=== PATIENT | male | born 1935 | race American Indian/Alaskan Native ===

== ENCOUNTER → 2022-03-15 | Outpatient (CLI) | payer MEDICARE, OTHER ==
[~2022-03-15] MED LIST: Pyridium100 MG PO; TAMS.4ER PO
[2022-03-15 10:57] LABS: Source, Urine Clean Catch
[2022-03-15 13:49] LABS: Appearance, Urine Hazy (Clear); Bilirubin, Urine Neg (Neg); Blood, Urine 1+ (Neg); Color, Urine Yellow (P-Yellow); Glucose Qualitative, Urine Neg (Neg); Ketones, Urine Neg (Neg); Leukocyte Esterase, Urine 2+ (Neg); Nitrite, Urine Neg (Neg); Protein, Urine 1+ (Neg); Urobilinogen, Urine NORM (Normal)
[2022-03-15 14:28] LABS: Bacteria Many /hpf; Red Blood Cells, Urine 0-2 /hpf (0-2); Squamous Epithelial Cells Few /hpf (Few); White Blood Cells, Urine TNTC /hpf (0-5)
== END | disposition home or self-care (01) ==
LOC: LAB 10:26 → LAB SHORT 10:26 → LAB FUT 03-14 18:15
PROVIDERS: Urology
DX: N39.0 Urinary tract infection, site not specified (principal)
CPT/HCPCS: 81001; 87077; 87086; 87186

== ENCOUNTER 2022-03-20 10:00 | Emergency (ER) | payer MEDICARE, OTHER ==
[~2022-03-20] VITALS: Ht 172.7 cm; Wt 71.2 kg
[2022-03-20 10:54] LABS: Source, Urine Voided
[2022-03-20 11:04] LABS: Appearance, Urine Clear (Clear); Bilirubin, Urine Neg (Neg); Blood, Urine Neg (Neg); Color, Urine Yellow (P-Yellow); Glucose Qualitative, Urine Neg (Neg); Ketones, Urine Neg (Neg); Leukocyte Esterase, Urine 1+ (Neg); Nitrite, Urine Neg (Neg); Protein, Urine 1+ (Neg); Specific Gravity, Urine 1.025 (1.003-1.022); Urobilinogen, Urine NORM (Normal)
[2022-03-20 13:01] LABS: Calcium Oxalate Crystals Few /hpf; Red Blood Cells, Urine 0-2 /hpf (0-2)
[2022-03-20 13:03] LABS: Bacteria Mod /hpf; Squamous Epithelial Cells Rare /hpf (Few)
[2022-03-20 13:04] LABS: Mucus Light (0-Heavy)
[2022-03-20] MEDS ORDERED: TAMS.4ER PO (13:08)
[2022-03-20] MEDS ORDERED: Pyridium100 MG PO (13:08)
== END 2022-03-20 13:21 | disposition home or self-care (01) ==
LOC: ER 10:00
PROVIDERS: Emergency Medicine
DX: S93.402A Sprain of unspecified ligament of left ankle, initial encounter (principal); N39.0 Urinary tract infection, site not specified; K52.1 Toxic gastroenteritis and colitis; W19.XXXA Unspecified fall, initial encounter; Z79.899 Other long term (current) drug therapy
CPT/HCPCS: 73562-LT; 73610; 81001; 87086; A9270

== ENCOUNTER 2022-03-25 09:38 | Emergency (ER) | payer MEDICARE, OTHER ==
[~2022-03-25] VITALS: Ht 172.7 cm; Wt 72.6 kg
[2022-03-25] MEDS ORDERED: TAMS.4ER PO (10:05)
== END 2022-03-25 10:41 | disposition home or self-care (01) ==
LOC: ER 09:38
DX: R33.9 Retention of urine, unspecified (principal); Z85.46 Personal history of malignant neoplasm of prostate; Z79.899 Other long term (current) drug therapy
CPT/HCPCS: 51702; 51798; A9270

== ENCOUNTER → 2022-03-29 | Outpatient (CLI) | payer MEDICARE, OTHER ==
[2022-03-29 13:56] LABS: BASOPHILS ABSOLUTE AUTO 0.04 K/mm3 (0.00-0.23); BASOPHILS PERCENT AUTO 1 % (0-2); EOSINOPHILS ABSOLUTE AUTO 0.48 K/mm3 (0.00-0.68); EOSINOPHILS PERCENT AUTO 8 % (0-6); Hematocrit 37.5 % (37.0-53.0); Hemoglobin 12.5 g/dL (13.5-17.5); IMMATURE GRAN ABSOLUTE AUTO 0.02 K/mm3 (0.00-0.10); IMMATURE GRAN PERCENT AUTO 0 % (0-1); LYMPHOCYTES ABSOLUTE AUTO 0.72 K/mm3 (0.84-5.20); LYMPHOCYTES PERCENT AUTO 12 % (21-46); MONOCYTES ABSOLUTE AUTO 0.64 K/mm3 (0.16-1.47); MONOCYTES PERCENT AUTO 10 % (4-13); Mean Corpuscular HGB 31.2 pg (26.0-34.0); Mean Corpuscular HGB Conc 33.3 g/dL (31.5-36.5); Mean Corpuscular Volume 94 fL (80-100); Mean Platelet Volume 10.6 fL (9.1-12.4); NEUTROPHILS ABSOLUTE AUTO 4.25 K/mm3 (1.96-9.15); NEUTROPHILS PERCENT AUTO 69 % (41-73); Platelet Count 211 K/mm3 (150-400); RDW Coefficient Variation 12.9 % (11.7-14.2); RDW Standard Deviation 44.6 fL (35.1-46.3); Red Blood Cell Count 4.01 M/mm3 (4.30-5.90); White Blood Cell Count 6.15 K/mm3 (4.00-11.30)
[2022-03-29 18:42] LABS: Albumin, Blood 2.9 g/dL (3.4-5.0); Albumin/Globulin Ratio 0.8 (0.8-1.8); Bilirubin, Total 0.5 mg/dL (0.1-1.0); Bun/Creatinine Ratio 18.9 (12.0-20.0); Calcium, Blood 8.4 mg/dL (8.5-10.1); Creatinine, Blood 1.11 mg/dL (0.60-1.20); Globulin, Blood 3.7 g/dL (2.2-4.0); Potassium, Blood 4.1 mmol/L (3.5-5.5); Total Protein, Blood 6.6 g/dL (6.4-8.2)
== END | disposition home or self-care (01) ==
LOC: LAB SHORT 09:18 → LAB 09:18
PROVIDERS: Internal Medicine Rheumatology
DX: M06.9 Rheumatoid arthritis, unspecified (principal)
CPT/HCPCS: 80053; 85025; 85651

== ENCOUNTER 2022-04-19 09:00 | Day surgery (SDC) | payer MEDICARE, OTHER ==
[~2022-04-19] VITALS: Ht 172.7 cm; Wt 71.7 kg
[~2022-04-19 09:00] MED LIST changes: +CEFD300 PO
[2022-04-19] MEDS ORDERED: ALBU2.5V5 (09:17)
[2022-04-19] MEDS ORDERED: ALLEGRA ALLERG180 MG PO (09:18)
[2022-04-19] MEDS ORDERED: DOC250 PO (09:18)
[2022-04-19] MEDS ORDERED: GLUCHON PO (09:18)
[2022-04-19] MEDS ORDERED: HYDSUL200 PO (09:19)
[2022-04-19] MEDS ORDERED: MULVITA PO (09:19)
[2022-04-19] MEDS ORDERED: Lisinopril2.5 MG (09:19)
[2022-04-19] MEDS ORDERED: LORA1SY (09:19)
[2022-04-19] MEDS ORDERED: NAPR500 PO (09:20)
[2022-04-19] MEDS ORDERED: PRED1 PO (09:20)
[2022-04-19] MEDS ORDERED: PSYLLIUM FIBER0.4 GM PO (09:21)
--- NOTE | 2022-04-19 11:50 | NUR ---
Discharge instructions reviewed with patient. Patient verbalizes understanding. Copy given to patient to take home.
--- NOTE | 2022-04-19 11:57 | NUR ---
Dressing to procedure site clean, dry, intact with no visible drainage, swelling, erythema or bruising noted.
--- NOTE | 2022-04-19 11:58 | NUR ---
Discharged via wheelchair to private car for ride home.
== END 2022-04-19 11:59 | disposition home or self-care (01) ==
LOC: ORSCMMR 09:00
PROVIDERS: Surgery
PROC: 0YB Anatomical Regions, Lower Extremities, Excision (ICD-10-PCS; principal; 2022-04-19 09:30)
DX: R22.9 Localized swelling, mass and lump, unspecified (principal); Z85.46 Personal history of malignant neoplasm of prostate; J44.9 Chronic obstructive pulmonary disease, unspecified; Z87.891 Personal history of nicotine dependence; Z79.899 Other long term (current) drug therapy
CPT/HCPCS: 88305; J1100; J1720; J2370; J2405; J2704; J2795; J3010; J7120

== ENCOUNTER 2022-04-30 15:01 | Emergency (ER) | payer MEDICARE, OTHER ==
[~2022-04-30] VITALS: Ht 172.7 cm; Wt 68.0 kg
[~2022-04-30 15:01] MED LIST changes: +ALBU2.5V5; +ALLEGRA ALLERG180 MG PO; +DOC250 PO; +GLUCHON PO; +HYDSUL200 PO; +LORA1SY; +Lisinopril2.5 MG; +MULVITA PO; +NAPR500 PO; +PRED1 PO; +PSYLLIUM FIBER0.4 GM PO
[2022-04-30 15:43] LABS: Source, Urine Foley catheter
[2022-04-30 15:46] LABS: Appearance, Urine Clear (Clear); Bilirubin, Urine Neg (Neg); Blood, Urine Neg (Neg); Color, Urine Yellow (P-Yellow); Glucose Qualitative, Urine Neg (Neg); Ketones, Urine Neg (Neg); Leukocyte Esterase, Urine 1+ (Neg); Nitrite, Urine Neg (Neg); Protein, Urine Neg (Neg); Specific Gravity, Urine 1.015 (1.003-1.022); Urobilinogen, Urine NORM (Normal)
[2022-04-30 16:06] LABS: Bacteria Mod /hpf; Red Blood Cells, Urine 0-2 /hpf (0-2); Squamous Epithelial Cells Rare /hpf (Few)
== END 2022-04-30 16:15 | disposition home or self-care (01) ==
LOC: ER 15:01
PROVIDERS: Student in an Organized Health Care Education/Training Program
DX: Z46.6 Encounter for fitting and adjustment of urinary device (principal); Z79.899 Other long term (current) drug therapy; Z79.52 Long term (current) use of systemic steroids
CPT/HCPCS: 51702; 81001

== ENCOUNTER 2022-06-23 15:50 | Emergency (ER) | payer MEDICARE, OTHER ==
[~2022-06-23] VITALS: Ht 172.7 cm; Wt 65.8 kg
[2022-06-23 16:13] LABS: BASOPHILS ABSOLUTE AUTO 0.02 K/mm3 (0.00-0.23); BASOPHILS PERCENT AUTO 0 % (0-2); EOSINOPHILS ABSOLUTE AUTO 0.06 K/mm3 (0.00-0.68); EOSINOPHILS PERCENT AUTO 1 % (0-6); Hematocrit 37.9 % (37.0-53.0); Hemoglobin 12.4 g/dL (13.5-17.5); IMMATURE GRAN ABSOLUTE AUTO 0.02 K/mm3 (0.00-0.10); IMMATURE GRAN PERCENT AUTO 0 % (0-1); LYMPHOCYTES ABSOLUTE AUTO 0.32 K/mm3 (0.84-5.20); LYMPHOCYTES PERCENT AUTO 4 % (21-46); MONOCYTES ABSOLUTE AUTO 0.82 K/mm3 (0.16-1.47); MONOCYTES PERCENT AUTO 11 % (4-13); Mean Corpuscular HGB 30.3 pg (26.0-34.0); Mean Corpuscular HGB Conc 32.7 g/dL (31.5-36.5); Mean Corpuscular Volume 93 fL (80-100); Mean Platelet Volume 9.9 fL (9.1-12.4); NEUTROPHILS ABSOLUTE AUTO 6.24 K/mm3 (1.96-9.15); NEUTROPHILS PERCENT AUTO 83 % (41-73); Platelet Count 197 K/mm3 (150-400); RDW Coefficient Variation 12.7 % (11.7-14.2); RDW Standard Deviation 43.3 fL (35.1-46.3); Red Blood Cell Count 4.09 M/mm3 (4.30-5.90); White Blood Cell Count 7.48 K/mm3 (4.00-11.30)
[2022-06-23] MEDS ORDERED: MYCO250 PO (16:25)
[2022-06-23] MEDS ORDERED: FURO20 (16:25)
[2022-06-23 16:51] LABS: Influenza A, PCR NEGATIVE (NEGATIVE); Influenza B, PCR NEGATIVE (NEGATIVE); Resp Syncytial Virus, PCR NEGATIVE (NEGATIVE)
[2022-06-23 16:53] LABS: Albumin, Blood 2.8 g/dL (3.4-5.0); Albumin/Globulin Ratio 0.7 (0.8-1.8); Bilirubin, Total 0.4 mg/dL (0.1-1.0); Bun/Creatinine Ratio 12.2 (12.0-20.0); Calcium, Blood 8.7 mg/dL (8.5-10.1); Creatinine, Blood 1.31 mg/dL (0.60-1.20); Globulin, Blood 3.9 g/dL (2.2-4.0); Potassium, Blood 4.8 mmol/L (3.5-5.5); Total Protein, Blood 6.7 g/dL (6.4-8.2)
[2022-06-23 17:00] LABS: SARS-Cov-2 (COVID-19) PCR, MMC POSITIVE (NEGATIVE)
== END 2022-06-23 19:22 | disposition home or self-care (01) ==
LOC: ER 15:50
PROVIDERS: Emergency Medicine
DX: U07.1 COVID-19 (principal); Z91.09 Other allergy status, other than to drugs and biological substances; Z79.899 Other long term (current) drug therapy; Z79.52 Long term (current) use of systemic steroids
CPT/HCPCS: 0241U; 71045; 80053; 85025; 93005; 93010; 99285-25; A9270

== ENCOUNTER 2022-09-28 08:47 | Emergency (ER) | payer MEDICARE, OTHER ==
[~2022-09-28] VITALS: Ht 177.8 cm; Wt 61.7 kg
[~2022-09-28 08:47] MED LIST changes: +FURO20; +MYCO250 PO
[2022-09-28 11:15] VITALS: BP 126/74
[2022-09-28 11:23] LABS: Source, Urine Foley catheter
[2022-09-28] MEDS ORDERED: SULFAMETHOXAZO1 EAC1 PO (11:27)
[2022-09-28 11:56] LABS: Appearance, Urine Hazy (Clear); Bilirubin, Urine Neg (Neg); Blood, Urine 2+ (Neg); Color, Urine Yellow (P-Yellow); Glucose Qualitative, Urine Neg (Neg); Ketones, Urine Neg (Neg); Leukocyte Esterase, Urine 2+ (Neg); Nitrite, Urine Neg (Neg); Protein, Urine 2+ (Neg); Specific Gravity, Urine 1.015 (1.003-1.022); Urobilinogen, Urine NORM (Normal)
[2022-09-28 12:09] LABS: Bacteria Few /hpf; Squamous Epithelial Cells Rare /hpf (Few)
[2022-09-28] MEDS ORDERED: Percocet 5-3251 EACH PO (13:37)
== END 2022-09-28 13:47 | disposition home or self-care (01) ==
LOC: ER 08:47
PROVIDERS: Emergency Medicine
DX: T83.091A Other mechanical complication of indwelling urethral catheter, initial encounter (principal); N39.0 Urinary tract infection, site not specified; Z85.46 Personal history of malignant neoplasm of prostate; Z91.048 Other nonmedicinal substance allergy status; Z79.52 Long term (current) use of systemic steroids; X58.XXXA Exposure to other specified factors, initial encounter
CPT/HCPCS: 51702; 81001; 87086; 99283-25; A9270

== ENCOUNTER 2022-12-04 18:12 | Emergency (ER) | payer MEDICARE, OTHER ==
[~2022-12-04] VITALS: Ht 172.7 cm; Wt 63.0 kg
[~2022-12-04 18:12] MED LIST changes: +Percocet 5-3251 EACH PO; +SULFAMETHOXAZO1 EAC1 PO
[2022-12-04 18:29] VITALS: BP 141/81
== END 2022-12-04 19:47 | disposition home or self-care (01) ==
LOC: ER 18:12
DX: T83.018A Breakdown (mechanical) of other urinary catheter, initial encounter (principal); Y84.6 Urinary catheterization as the cause of abnormal reaction of the patient, or of later complication, without mention of misadventure at the time of the procedure
CPT/HCPCS: 51702; 99282-25

== ENCOUNTER 2022-12-23 15:01 | Emergency (ER) | payer MEDICARE, OTHER ==
[~2022-12-23] VITALS: Ht 172.7 cm; Wt 62.1 kg
[2022-12-23 15:30] LABS: Source, Urine Foley catheter
[2022-12-23 15:31] LABS: BASOPHILS ABSOLUTE AUTO 0.03 K/mm3 (0.00-0.23); BASOPHILS PERCENT AUTO 0 % (0-2); EOSINOPHILS ABSOLUTE AUTO 0.07 K/mm3 (0.00-0.68); EOSINOPHILS PERCENT AUTO 1 % (0-6); Hematocrit 35.6 % (37.0-53.0); Hemoglobin 11.6 g/dL (13.5-17.5); IMMATURE GRAN ABSOLUTE AUTO 0.01 K/mm3 (0.00-0.10); IMMATURE GRAN PERCENT AUTO 0 % (0-1); LYMPHOCYTES ABSOLUTE AUTO 0.58 K/mm3 (0.84-5.20); LYMPHOCYTES PERCENT AUTO 8 % (21-46); MONOCYTES ABSOLUTE AUTO 0.55 K/mm3 (0.16-1.47); MONOCYTES PERCENT AUTO 8 % (4-13); Mean Corpuscular HGB 31.1 pg (26.0-34.0); Mean Corpuscular HGB Conc 32.6 g/dL (31.5-36.5); Mean Corpuscular Volume 95 fL (80-100); Mean Platelet Volume 10.3 fL (9.1-12.4); NEUTROPHILS ABSOLUTE AUTO 6.06 K/mm3 (1.96-9.15); NEUTROPHILS PERCENT AUTO 83 % (41-73); Platelet Count 199 K/mm3 (150-400); RDW Coefficient Variation 13.1 % (11.7-14.2); RDW Standard Deviation 45.8 fL (35.1-46.3); Red Blood Cell Count 3.73 M/mm3 (4.30-5.90)
[2022-12-23 15:38] LABS: Albumin, Blood 3.1 g/dL (3.4-5.0); Albumin/Globulin Ratio 0.8 (0.8-1.8); Bilirubin, Total 0.2 mg/dL (0.1-1.0); Bun/Creatinine Ratio 15.8 (12.0-20.0); Calcium, Blood 8.3 mg/dL (8.5-10.1); Creatinine, Blood 1.46 mg/dL (0.60-1.20); Globulin, Blood 3.7 g/dL (2.2-4.0); Potassium, Blood 4.6 mmol/L (3.5-5.5); Total Protein, Blood 6.8 g/dL (6.4-8.2)
[2022-12-23 15:50] LABS: Appearance, Urine Hazy (Clear); Bilirubin, Urine Neg (Neg); Blood, Urine 2+ (Neg); Color, Urine Yellow (P-Yellow); Glucose Qualitative, Urine Neg (Neg); Ketones, Urine Neg (Neg); Leukocyte Esterase, Urine 2+ (Neg); Nitrite, Urine Pos (Neg); Protein, Urine 1+ (Neg); Urobilinogen, Urine NORM (Normal)
[2022-12-23 16:57] LABS: Amorphous Light (0-Heavy); Bacteria Many /hpf; Mucus Light (0-Heavy); Squamous Epithelial Cells Few /hpf (Few); Transitional Epithelial Cells Rare /hpf (0-Rare)
[2022-12-23 18:30] VITALS: BP 150/73
== END 2022-12-23 18:42 | disposition home or self-care (01) ==
LOC: ER 15:01
PROVIDERS: Student in an Organized Health Care Education/Training Program
DX: T83.518A Infection and inflammatory reaction due to other urinary catheter, initial encounter (principal); R31.9 Hematuria, unspecified; X58.XXXA Exposure to other specified factors, initial encounter; Z79.51 Long term (current) use of inhaled steroids; Z79.899 Other long term (current) drug therapy; Z79.890 Hormone replacement therapy; Z91.09 Other allergy status, other than to drugs and biological substances
CPT/HCPCS: 80053; 81001; 85025; 87077; 87086; 87186; 99284

== ENCOUNTER 2023-02-03 12:26 | Emergency (ER) | payer MEDICARE, OTHER ==
[~2023-02-03] VITALS: Ht 172.7 cm; Wt 61.2 kg
[2023-02-03 12:32] VITALS: BP 121/70
[2023-02-03 13:26] LABS: Source, Urine Foley catheter
[2023-02-03 13:34] LABS: Appearance, Urine Cloudy (Clear); Bilirubin, Urine Neg (Neg); Blood, Urine 4+ (Neg); Color, Urine Yellow (P-Yellow); Glucose Qualitative, Urine Neg (Neg); Ketones, Urine Neg (Neg); Leukocyte Esterase, Urine 2+ (Neg); Nitrite, Urine Neg (Neg); Protein, Urine 2+ (Neg); Specific Gravity, Urine 1.025 (1.003-1.022); Urobilinogen, Urine NORM (Normal)
[2023-02-03 14:01] LABS: Amorphous Light (0-Heavy); Bacteria Many /hpf; Hyaline Casts 0-2 /lpf (0-2); Mucus Light (0-Heavy); Red Blood Cells, Urine 25-50 /hpf (0-2); Renal Epithelial Few /hpf (0-Rare); Squamous Epithelial Cells Rare /hpf (Few); White Blood Cells, Urine 25-50 /hpf (0-5)
== END 2023-02-03 14:39 | disposition home or self-care (01) ==
LOC: ER 12:26
PROVIDERS: Student in an Organized Health Care Education/Training Program
DX: T83.031A Leakage of indwelling urethral catheter, initial encounter (principal); Y84.6 Urinary catheterization as the cause of abnormal reaction of the patient, or of later complication, without mention of misadventure at the time of the procedure; Z91.048 Other nonmedicinal substance allergy status; Z79.899 Other long term (current) drug therapy
CPT/HCPCS: 51702; 81001; 87086; 99283-25

== ENCOUNTER 2023-02-24 13:43 | Emergency (ER) | payer MEDICARE, OTHER ==
[~2023-02-24] VITALS: Ht 172.7 cm; Wt 62.6 kg
[2023-02-24 15:32] LABS: BASOPHILS ABSOLUTE AUTO 0.03 K/mm3 (0.00-0.23); BASOPHILS PERCENT AUTO 0 % (0-2); EOSINOPHILS ABSOLUTE AUTO 0.04 K/mm3 (0.00-0.68); EOSINOPHILS PERCENT AUTO 0 % (0-6); Hemoglobin 11.9 g/dL (13.5-17.5); IMMATURE GRAN ABSOLUTE AUTO 0.03 K/mm3 (0.00-0.10); IMMATURE GRAN PERCENT AUTO 0 % (0-1); LYMPHOCYTES ABSOLUTE AUTO 0.05 K/mm3 (0.84-5.20); LYMPHOCYTES PERCENT AUTO 0 % (21-46); MONOCYTES ABSOLUTE AUTO 0.62 K/mm3 (0.16-1.47); MONOCYTES PERCENT AUTO 5 % (4-13); Mean Corpuscular HGB 31.5 pg (26.0-34.0); Mean Corpuscular HGB Conc 32.2 g/dL (31.5-36.5); Mean Corpuscular Volume 98 fL (80-100); Mean Platelet Volume 9.8 fL (9.1-12.4); NEUTROPHILS ABSOLUTE AUTO 12.23 K/mm3 (1.96-9.15); NEUTROPHILS PERCENT AUTO 94 % (41-73); Platelet Count 182 K/mm3 (150-400); RDW Coefficient Variation 12.8 % (11.7-14.2); RDW Standard Deviation 45.7 fL (35.1-46.3); Red Blood Cell Count 3.78 M/mm3 (4.30-5.90)
[2023-02-24 15:52] LABS: Albumin, Blood 2.8 g/dL (3.4-5.0); Albumin/Globulin Ratio 0.8 (0.8-1.8); Bilirubin, Total 0.3 mg/dL (0.1-1.0); Bun/Creatinine Ratio 18.3 (12.0-20.0); Calcium, Blood 8.3 mg/dL (8.5-10.1); Creatinine, Blood 1.42 mg/dL (0.60-1.20); Globulin, Blood 3.6 g/dL (2.2-4.0); Potassium, Blood 4.8 mmol/L (3.5-5.5); Total Protein, Blood 6.4 g/dL (6.4-8.2)
[2023-02-24 16:22] LABS: Source, Urine Foley catheter
[2023-02-24 16:32] LABS: Bilirubin, Urine Neg (Neg); Blood, Urine 2+ (Neg); Color, Urine Yellow (P-Yellow); Glucose Qualitative, Urine Neg (Neg); Ketones, Urine Neg (Neg); Leukocyte Esterase, Urine 1+ (Neg); Nitrite, Urine Neg (Neg); Protein, Urine 1+ (Neg); Urobilinogen, Urine NORM (Normal)
[2023-02-24 16:40] LABS: Influenza A, PCR NEGATIVE (NEGATIVE); Influenza B, PCR NEGATIVE (NEGATIVE); Resp Syncytial Virus, PCR NEGATIVE (NEGATIVE); SARS-Cov-2 (COVID-19) PCR, MMC NEGATIVE (NEGATIVE)
[2023-02-24 17:14] LABS: Appearance, Urine Hazy (Clear)
[2023-02-24] MEDS ORDERED: LOPE2C PO (17:50)
[2023-02-24] MEDS ORDERED: ONDA4ODT MM (17:50)
[2023-02-24] MEDS ORDERED: PROBIOTIC1 EA13 PO (17:50)
[2023-02-24 17:53] LABS: Bacteria Many /hpf; Hyaline Casts 0-2 /lpf (0-2); Mucus Light (0-Heavy); Squamous Epithelial Cells Rare /hpf (Few)
[2023-02-24 17:54] LABS: Calcium Oxalate Crystals Rare /hpf
[2023-02-24 18:48] VITALS: BP 115/58
[2023-02-25] MEDS ORDERED: ONDA4ODT MM (09:00)
[2023-02-25] MEDS ORDERED: LOPE2C PO (09:00)
[2023-02-25] MEDS ORDERED: PROBIOTIC1 EA13 PO (09:00)
== END 2023-02-24 18:49 | disposition home or self-care (01) ==
LOC: ER 13:43
PROVIDERS: Emergency Medicine; Student in an Organized Health Care Education/Training Program
DX: R11.2 Nausea with vomiting, unspecified (principal); R19.7 Diarrhea, unspecified; E86.0 Dehydration; D64.9 Anemia, unspecified; N28.9 Disorder of kidney and ureter, unspecified; N39.0 Urinary tract infection, site not specified; Z20.822 Contact with and (suspected) exposure to COVID-19; Z91.048 Other nonmedicinal substance allergy status; Z79.899 Other long term (current) drug therapy
CPT/HCPCS: 0241U; 80053; 81001; 85025; 87086; 93005; 93010; 96360; 99284-25; J7030

== ENCOUNTER 2023-04-01 04:35 | Emergency (ER) | payer MEDICARE, OTHER ==
[~2023-04-01] VITALS: Ht 172.7 cm; Wt 60.8 kg
[~2023-04-01 04:35] MED LIST changes: +LOPE2C PO; -Lisinopril2.5 MG; +Lisinopril2.5 MG PO; +ONDA4ODT MM; +PROBIOTIC1 EA13 PO
[2023-04-01 05:39] LABS: BASOPHILS ABSOLUTE AUTO 0.03 K/mm3 (0.00-0.23); BASOPHILS PERCENT AUTO 1 % (0-2); EOSINOPHILS PERCENT AUTO 3 % (0-6); Hematocrit 35.7 % (37.0-53.0); Hemoglobin 11.5 g/dL (13.5-17.5); IMMATURE GRAN ABSOLUTE AUTO 0.02 K/mm3 (0.00-0.10); IMMATURE GRAN PERCENT AUTO 0 % (0-1); LYMPHOCYTES ABSOLUTE AUTO 0.83 K/mm3 (0.84-5.20); LYMPHOCYTES PERCENT AUTO 13 % (21-46); MONOCYTES ABSOLUTE AUTO 0.68 K/mm3 (0.16-1.47); MONOCYTES PERCENT AUTO 11 % (4-13); Mean Corpuscular HGB 30.9 pg (26.0-34.0); Mean Corpuscular HGB Conc 32.2 g/dL (31.5-36.5); Mean Corpuscular Volume 96 fL (80-100); Mean Platelet Volume 9.6 fL (9.1-12.4); NEUTROPHILS ABSOLUTE AUTO 4.61 K/mm3 (1.96-9.15); NEUTROPHILS PERCENT AUTO 72 % (41-73); Platelet Count 205 K/mm3 (150-400); Red Blood Cell Count 3.72 M/mm3 (4.30-5.90); White Blood Cell Count 6.37 K/mm3 (4.00-11.30)
[2023-04-01 06:08] LABS: Albumin, Blood 2.9 g/dL (3.4-5.0); Albumin/Globulin Ratio 0.8 (0.8-1.8); Bilirubin, Total 0.3 mg/dL (0.1-1.0); Bun/Creatinine Ratio 13.1 (12.0-20.0); Calcium, Blood 8.6 mg/dL (8.5-10.1); Creatinine, Blood 1.3 mg/dL (0.60-1.20); Globulin, Blood 3.6 g/dL (2.2-4.0); Potassium, Blood 4.2 mmol/L (3.5-5.5); Total Protein, Blood 6.5 g/dL (6.4-8.2)
[2023-04-01 09:41] VITALS: BP 116/97
== END 2023-04-01 10:24 | disposition home or self-care (01) ==
LOC: ER 04:35
PROVIDERS: Emergency Medicine
DX: K59.00 Constipation, unspecified (principal); M05.10 Rheumatoid lung disease with rheumatoid arthritis of unspecified site; N18.9 Chronic kidney disease, unspecified; D63.1 Anemia in chronic kidney disease; Z91.048 Other nonmedicinal substance allergy status; Z79.899 Other long term (current) drug therapy; Z79.52 Long term (current) use of systemic steroids; Z79.51 Long term (current) use of inhaled steroids
CPT/HCPCS: 74019; 74177; 80053; 85025; 96374; 96375; 96376; 99284-25; A9270; J2270; J2405; Q9967

== ENCOUNTER 2023-05-08 07:04 | Day surgery (SDC) | payer MEDICARE, OTHER ==
[~2023-05-08] VITALS: Ht 172.7 cm; Wt 61.0 kg
[~2023-05-08 07:04] MED LIST changes: +COLLAGEN 15001 EACH PO; +DOCU100 PO; +LORA10ER PO; +NAPROXEN250 M1 PO; +PSYLLIUM HUSK
[2023-05-08 07:45] VITALS: BP 153/75
[2023-05-08] MEDS ORDERED: FentaNYL Citrate 50 MCG/ML 2 ML Injection ONE ×2 (08:31→09:09)
[2023-05-08] MEDS ORDERED: NS 1,000 ML IV ONE (08:31)
[2023-05-08] MEDS ORDERED: Midazolam HCl 1MG / ML 2ML Vial ONE ×2 (08:31→09:09)
--- NOTE | 2023-05-08 09:25 | NUR ---
PT BACK TO RECOVERY ROOM VIA BED AFTER PROCEDURE. AWAKE AND ALERT, CURRENTLY DENIES PAIN OR DISCOMFORT. VSS, CALL LIGHT IN REACH
[2023-05-08 09:34] VITALS: BP 144/73
[2023-05-08 09:45] VITALS: BP 141/54
[2023-05-08 10:00] VITALS: BP 139/47
--- NOTE | 2023-05-08 10:11 | NUR ---
PT EATING BREAKFAST, CALL LIGHT IN REACH. VSS. WILL DC HOME AFTER BREAKFAST PER PT REQUEST.
--- NOTE | 2023-05-08 10:45 | NUR ---
IV DC'D, CATH INTACT. PT GIVEN DC INSTRUCTIONS AND FOLLOW UP INFO, VERBALIZED UNDERSTANDING. SUPRAPUBIC SITE CLEAN AND DRY, NO ACTIVE BLEEDING OR SWELLING NOTED. PT OUT TO CAR VIA WHEELCHAIR, ACCOMPANIED BY SISTER.
== END 2023-05-08 10:45 | disposition home or self-care (01) ==
LOC: MHTC 07:04
DX: C61 Malignant neoplasm of prostate (principal); R33.9 Retention of urine, unspecified; J44.9 Chronic obstructive pulmonary disease, unspecified; M19.90 Unspecified osteoarthritis, unspecified site; M05.10 Rheumatoid lung disease with rheumatoid arthritis of unspecified site; Z87.891 Personal history of nicotine dependence; Z79.899 Other long term (current) drug therapy
CPT/HCPCS: 51102; 76937; 99152; 99153; C1729; C1769; J2250; J3010; J7030; Q9967

== ENCOUNTER 2023-10-09 11:14 | Day surgery (SDC) | payer MEDICARE, OTHER ==
[~2023-10-09] VITALS: Ht 172.7 cm; Wt 58.0 kg
[~2023-10-09 11:14] MED LIST changes: +Bactrim Ds Tab1 EACH PO; +Flonase 0.05% N16 GM; +LOSA25 PO; +NITROFURANTOIN5012 PO; +ONDA4 PO; +OXYC5 PO; +Sanctura20 MG PO; +[UNRECOGNIZED DRUG - OTHER]
[2023-10-09 11:54] VITALS: BP 166/94
[2023-10-09] MEDS ORDERED: NS 250 ML IV ONE (12:44)
[2023-10-09] MEDS ORDERED: NS 1,000 ML IV ONE (12:45)
[2023-10-09] MEDS ORDERED: FentaNYL Citrate 50 MCG/ML 2 ML Injection ONE (13:19)
[2023-10-09] MEDS ORDERED: Midazolam HCl 1MG / ML 2ML Vial ONE (13:19)
[2023-10-09 14:00] VITALS: BP 161/83
[2023-10-09 14:15] VITALS: BP 163/148
[2023-10-09 14:30] VITALS: BP 144/115
--- NOTE | 2023-10-09 15:15 | NUR ---
PT VERBALIZES UNDERSTANDING WRITTEN AND VERBAL INSTRUCTIONS. PT EXISTING URINARY BECKHAM CATHETER REMOVED PER DR GERONIMO. PT SUPRAPUBIC CATHETER C/D/I AT SITE, CLEAR, YELLOW URINE, NO SEDIMENT, DRAINING APPROPRIATELY INTO DRAINAGE BAG. PT DRESSES SELF WITHOUT DIFF. PT IV DC'D. CATH INTACT. PRESSURE DSG APPLIED. PT DC TO HOME VIA SISTER BY [place]
== END 2023-10-09 15:31 | disposition home or self-care (01) ==
LOC: MHTC 11:14
DX: Z43.6 Encounter for attention to other artificial openings of urinary tract (principal); C61 Malignant neoplasm of prostate; R33.9 Retention of urine, unspecified; J44.9 Chronic obstructive pulmonary disease, unspecified; I10 Essential (primary) hypertension; M19.90 Unspecified osteoarthritis, unspecified site; Z87.891 Personal history of nicotine dependence; Z79.899 Other long term (current) drug therapy
CPT/HCPCS: 51102; 76937; 99152; C1729; C1769; J2250; J3010; J7030; J7050; Q9967

== ENCOUNTER 2023-12-16 02:04 | Emergency (ER) | payer MEDICARE, OTHER ==
[~2023-12-16] VITALS: Ht 170.2 cm; Wt 74.8 kg
[~2023-12-16 02:04] MED LIST changes: +Zovirax800 MG PO
[2023-12-16] MEDS ORDERED: OxyCODONE HCL 5 MG TAB PO ONE (03:15)
[2023-12-16] MEDS ORDERED: Acetaminophen 325 MG TABLET PO ONE (03:15)
[2023-12-16] MEDS ORDERED: FentaNYL Citrate 50 MCG/ML 2 ML Injection IV ONE (04:05)
[2023-12-16 06:30] VITALS: BP 134/74
[2023-12-16] MEDS ORDERED: RX Prepack 6 Tabs Oxycodone 5mg UD ONE (06:50)
[2023-12-16] MEDS ORDERED: Diphth,Pertuss(Acell),Tet Vac 0.5 ML VIAL IM ONE (07:00)
== END 2023-12-16 07:10 | disposition home or self-care (01) ==
LOC: ER 02:04
DX: S09.90XA Unspecified injury of head, initial encounter (principal); R07.81 Pleurodynia; W01.0XXA Fall on same level from slipping, tripping and stumbling without subsequent striking against object, initial encounter; Z87.891 Personal history of nicotine dependence; Z79.52 Long term (current) use of systemic steroids; Z79.51 Long term (current) use of inhaled steroids; Z79.899 Other long term (current) drug therapy
CPT/HCPCS: 70450; 71101; 90471; 90715; 93005; 93010; 96374; 99284-25; A9270; J3010

== ENCOUNTER 2024-01-16 18:28 | Emergency (ER) | payer MEDICARE, OTHER ==
[~2024-01-16] VITALS: Ht 172.7 cm; Wt 54.4 kg
[2024-01-16 19:15] VITALS: BP 166/75
[2024-01-17] MEDS ORDERED: Monodox100 MG PO (09:53)
== END 2024-01-16 20:48 | disposition left against medical advice (07) ==
LOC: ER 18:28
DX: T83.9XXA Unspecified complication of genitourinary prosthetic device, implant and graft, initial encounter (principal); Z53.29 Procedure and treatment not carried out because of patient's decision for other reasons
CPT/HCPCS: 99281

== ENCOUNTER 2024-01-17 08:03 | Emergency (ER) | payer MEDICARE, OTHER ==
[~2024-01-17] VITALS: Ht 172.7 cm; Wt 54.4 kg
[2024-01-17 08:39] VITALS: BP 163/86
[2024-01-17 09:34] LABS: Source, Urine Clean Catch
[2024-01-17 09:38] LABS: Appearance, Urine Clear (Clear); Bilirubin, Urine Neg (Neg); Blood, Urine 4+ (Neg); Color, Urine Yellow (P-Yellow); Glucose Qualitative, Urine Neg (Neg); Ketones, Urine Neg (Neg); Leukocyte Esterase, Urine 3+ (Neg); Nitrite, Urine Neg (Neg); Protein, Urine 3+ (Neg); Specific Gravity, Urine 1.025 (1.003-1.022); Urobilinogen, Urine NORM (Normal)
[2024-01-17 09:53] LABS: Squamous Epithelial Cells Rare /hpf (Few); White Blood Cells, Urine 50-100 /hpf (0-5)
[2024-01-17] MEDS ORDERED: Monodox100 MG PO (09:53)
[2024-01-17 09:54] LABS: Bacteria Mod /hpf; Calcium Oxalate Crystals Rare /hpf
== END 2024-01-17 10:06 | disposition home or self-care (01) ==
LOC: ER 08:03
PROVIDERS: Physician Assistant
DX: T83.89XA Other specified complication of genitourinary prosthetic devices, implants and grafts, initial encounter (principal); N39.0 Urinary tract infection, site not specified; Z79.52 Long term (current) use of systemic steroids; Z79.51 Long term (current) use of inhaled steroids; Z79.899 Other long term (current) drug therapy
CPT/HCPCS: 51702; 81001; 87077; 87086; 87186; 99283

== ENCOUNTER 2024-02-05 20:26 | Emergency (ER) | payer MEDICARE, OTHER ==
[~2024-02-05] VITALS: Ht 172.7 cm; Wt 52.6 kg
[~2024-02-05 20:26] MED LIST changes: +Monodox100 MG PO
[2024-02-05 23:48] LABS: Source, Urine Suprapubic Cath
[2024-02-06 00:09] LABS: Bilirubin, Urine Neg (Neg); Blood, Urine 5+ (Neg); Glucose Qualitative, Urine Neg (Neg); Ketones, Urine Neg (Neg); Leukocyte Esterase, Urine 3+ (Neg); Nitrite, Urine Neg (Neg); Protein, Urine Neg (Neg); Urobilinogen, Urine NORM (Normal)
[2024-02-06 00:28] LABS: Appearance, Urine Clear (Clear); Color, Urine Yellow (P-Yellow)
[2024-02-06 00:29] LABS: Red Blood Cells, Urine 50-100 /hpf (0-2)
[2024-02-06 00:30] LABS: Bacteria Not Seen /hpf; Squamous Epithelial Cells Not Seen /hpf (Few)
[2024-02-06] MEDS ORDERED: Cephalexin Monohydrate 500 MG Cap PO ONE (00:40)
[2024-02-06] MEDS ORDERED: CEPH500 PO (00:44)
[2024-02-06 01:51] VITALS: BP 148/92
== END 2024-02-06 01:56 | disposition home or self-care (01) ==
LOC: ER 20:26
PROVIDERS: Emergency Medicine
DX: T83.89XA Other specified complication of genitourinary prosthetic devices, implants and grafts, initial encounter (principal); N39.0 Urinary tract infection, site not specified; Z87.891 Personal history of nicotine dependence; Z79.899 Other long term (current) drug therapy; Z79.51 Long term (current) use of inhaled steroids; Z79.52 Long term (current) use of systemic steroids
CPT/HCPCS: 51705; 81001; 99283-25; A9270; C2627

== ENCOUNTER 2024-02-28 11:04 | Day surgery (SDC) | payer MEDICARE, OTHER ==
[~2024-02-28] VITALS: Ht 172.7 cm; Wt 54.0 kg
[~2024-02-28 11:04] MED LIST changes: +CEPH500 PO
[2024-02-28 12:45] VITALS: BP 158/76
[2024-02-28] MEDS ORDERED: FentaNYL Citrate 50 MCG/ML 2 ML Injection ONE (14:53)
[2024-02-28] MEDS ORDERED: Midazolam HCl 1MG / ML 2ML Vial ONE (14:53)
[2024-02-28] MEDS ORDERED: NS 250 ML IV ONE (15:04)
[2024-02-28 15:53] VITALS: BP 149/86
[2024-02-28 16:00] VITALS: BP 151/78
[2024-02-28 16:15] VITALS: BP 171/86
--- NOTE | 2024-02-28 16:33 | NUR ---
PT BACK TO RECOVERY S/P TUBE EXCHANGE. PT. ALERT AND ORIENTED. SITTING UP IN BED EATING AND DRINKING. DRAINAGE BAG ATTATCHED TO LEG. PT. VSS UPON RETURN TO UNIT. SUPRAPUBIC DRAINING WELL. PT. SISTER TO PICK PT UP. PT ABLE TO GET SELF DRESSED W/O DIFFICULTY. IV REMOVED, CATHETER INTACT.
== END 2024-02-28 17:15 | disposition home or self-care (01) ==
LOC: MHTC 11:04
DX: T83.098A Other mechanical complication of other urinary catheter, initial encounter (principal); C61 Malignant neoplasm of prostate; N13.9 Obstructive and reflux uropathy, unspecified; I10 Essential (primary) hypertension; J44.9 Chronic obstructive pulmonary disease, unspecified; Z87.891 Personal history of nicotine dependence; Z79.899 Other long term (current) drug therapy
CPT/HCPCS: 50437; 99152; C1769; J2250; J3010; J7050; Q9967

== ENCOUNTER 2024-04-02 15:50 | Emergency (ER) | payer MEDICARE, OTHER ==
[~2024-04-02] VITALS: Ht 172.7 cm; Wt 50.4 kg
[2024-04-02 20:24] LABS: Source, Urine Suprapubic Cath
[2024-04-02 20:28] LABS: Bilirubin, Urine Neg (Neg); Blood, Urine 5+ (Neg); Glucose Qualitative, Urine Neg (Neg); Ketones, Urine 3+ (Neg); Leukocyte Esterase, Urine 3+ (Neg); Nitrite, Urine Pos (Neg); Protein, Urine 3+ (Neg); Specific Gravity, Urine 1.025 (1.003-1.022); Urobilinogen, Urine NORM (Normal)
[2024-04-02 20:35] LABS: Appearance, Urine Cloudy (Clear); Color, Urine Yellow (P-Yellow)
[2024-04-02 20:37] LABS: Amorphous Light (0-Heavy); Bacteria Many /hpf; Red Blood Cells, Urine 50-100 /hpf (0-2); Squamous Epithelial Cells Not Seen /hpf (Few)
[2024-04-02] MEDS ORDERED: NS 1,000 ML IV SCH (20:45)
[2024-04-02] MEDS ORDERED: Cefpodoxime Proxetil 200 MG Tab PO ONE (20:55)
[2024-04-02] MEDS ORDERED: CEFP200 PO (20:55)
[2024-04-02 21:34] LABS: BASOPHILS ABSOLUTE AUTO 0.05 K/mm3 (0.00-0.23); BASOPHILS PERCENT AUTO 1 % (0-2); EOSINOPHILS ABSOLUTE AUTO 0.06 K/mm3 (0.00-0.68); EOSINOPHILS PERCENT AUTO 1 % (0-6); Hematocrit 37.6 % (37.0-53.0); Hemoglobin 12.2 g/dL (13.5-17.5); IMMATURE GRAN ABSOLUTE AUTO 0.03 K/mm3 (0.00-0.10); IMMATURE GRAN PERCENT AUTO 1 % (0-1); LYMPHOCYTES ABSOLUTE AUTO 0.84 K/mm3 (0.84-5.20); LYMPHOCYTES PERCENT AUTO 16 % (21-46); MONOCYTES PERCENT AUTO 11 % (4-13); Mean Corpuscular HGB 31.4 pg (26.0-34.0); Mean Corpuscular HGB Conc 32.4 g/dL (31.5-36.5); Mean Corpuscular Volume 97 fL (80-100); Mean Platelet Volume 9.6 fL (9.1-12.4); NEUTROPHILS ABSOLUTE AUTO 3.73 K/mm3 (1.96-9.15); NEUTROPHILS PERCENT AUTO 70 % (41-73); Platelet Count 181 K/mm3 (150-400); RDW Coefficient Variation 12.7 % (11.7-14.2); RDW Standard Deviation 45.3 fL (35.1-46.3); Red Blood Cell Count 3.88 M/mm3 (4.30-5.90); White Blood Cell Count 5.31 K/mm3 (4.00-11.30)
[2024-04-02 21:54] LABS: Albumin, Blood 2.7 g/dL (3.4-5.0); Albumin/Globulin Ratio 0.8 (0.8-1.8); Bilirubin, Total 0.4 mg/dL (0.1-1.0); Bun/Creatinine Ratio 15.7 (12.0-20.0); Calcium, Blood 8.5 mg/dL (8.5-10.1); Creatinine, Blood 0.96 mg/dL (0.60-1.20); Globulin, Blood 3.4 g/dL (2.2-4.0); Potassium, Blood 4.2 mmol/L (3.5-5.5); Total Protein, Blood 6.1 g/dL (6.4-8.2)
[2024-04-02 22:30] VITALS: BP 157/73
== END 2024-04-02 22:50 | disposition home or self-care (01) ==
LOC: ER 15:50
PROVIDERS: Physician Assistant; Student in an Organized Health Care Education/Training Program
DX: T83.89XA Other specified complication of genitourinary prosthetic devices, implants and grafts, initial encounter (principal); N39.0 Urinary tract infection, site not specified; Z79.899 Other long term (current) drug therapy; Z79.52 Long term (current) use of systemic steroids; Z87.891 Personal history of nicotine dependence; Y73.8 Miscellaneous gastroenterology and urology devices associated with adverse incidents, not elsewhere classified
CPT/HCPCS: 80053; 81001; 85025; 87077; 87086; 87186; 96360; 99283-25; A9270; J7030

== ENCOUNTER 2024-04-17 15:08 | Emergency (ER) | payer MEDICARE, OTHER ==
[~2024-04-17] VITALS: Ht 172.7 cm; Wt 50.4 kg
[~2024-04-17 15:08] MED LIST changes: +CEFP200 PO
[2024-04-17 15:42] VITALS: BP 178/98
[2024-04-17 16:59] LABS: BASOPHILS ABSOLUTE AUTO 0.04 K/mm3 (0.00-0.23); BASOPHILS PERCENT AUTO 1 % (0-2); EOSINOPHILS ABSOLUTE AUTO 0.08 K/mm3 (0.00-0.68); EOSINOPHILS PERCENT AUTO 1 % (0-6); Hematocrit 38.4 % (37.0-53.0); Hemoglobin 12.7 g/dL (13.5-17.5); IMMATURE GRAN ABSOLUTE AUTO 0.02 K/mm3 (0.00-0.10); IMMATURE GRAN PERCENT AUTO 0 % (0-1); LYMPHOCYTES ABSOLUTE AUTO 0.66 K/mm3 (0.84-5.20); LYMPHOCYTES PERCENT AUTO 11 % (21-46); MONOCYTES ABSOLUTE AUTO 0.67 K/mm3 (0.16-1.47); MONOCYTES PERCENT AUTO 11 % (4-13); Mean Corpuscular HGB 31.4 pg (26.0-34.0); Mean Corpuscular HGB Conc 33.1 g/dL (31.5-36.5); Mean Corpuscular Volume 95 fL (80-100); Mean Platelet Volume 9.8 fL (9.1-12.4); NEUTROPHILS ABSOLUTE AUTO 4.48 K/mm3 (1.96-9.15); NEUTROPHILS PERCENT AUTO 75 % (41-73); Platelet Count 199 K/mm3 (150-400); RDW Coefficient Variation 12.6 % (11.7-14.2); Red Blood Cell Count 4.04 M/mm3 (4.30-5.90); White Blood Cell Count 5.95 K/mm3 (4.00-11.30)
[2024-04-17 17:19] LABS: Albumin, Blood 2.8 g/dL (3.4-5.0); Albumin/Globulin Ratio 0.8 (0.8-1.8); Bilirubin, Total 0.5 mg/dL (0.1-1.0); Bun/Creatinine Ratio 11.4 (12.0-20.0); Creatinine, Blood 1.05 mg/dL (0.60-1.20); Globulin, Blood 3.7 g/dL (2.2-4.0); Potassium, Blood 4.4 mmol/L (3.5-5.5); Total Protein, Blood 6.5 g/dL (6.4-8.2)
[2024-04-17] MEDS ORDERED: CEPH500 PO (19:49)
== END 2024-04-17 20:17 | disposition home or self-care (01) ==
LOC: ER 15:08
PROVIDERS: Student in an Organized Health Care Education/Training Program
DX: T83.091A Other mechanical complication of indwelling urethral catheter, initial encounter (principal); N39.0 Urinary tract infection, site not specified; R31.9 Hematuria, unspecified; Z79.899 Other long term (current) drug therapy; Z79.52 Long term (current) use of systemic steroids
CPT/HCPCS: 80053; 85025; 99283

== ENCOUNTER → 2024-05-08 | Outpatient (CLI) | payer MEDICARE, OTHER ==
[2024-05-08 14:44] LABS: BASOPHILS ABSOLUTE AUTO 0.04 K/mm3 (0.00-0.23); BASOPHILS PERCENT AUTO 1 % (0-2); EOSINOPHILS ABSOLUTE AUTO 0.15 K/mm3 (0.00-0.68); EOSINOPHILS PERCENT AUTO 2 % (0-6); Hematocrit 39.1 % (37.0-53.0); Hemoglobin 12.5 g/dL (13.5-17.5); IMMATURE GRAN ABSOLUTE AUTO 0.03 K/mm3 (0.00-0.10); IMMATURE GRAN PERCENT AUTO 1 % (0-1); LYMPHOCYTES ABSOLUTE AUTO 0.59 K/mm3 (0.84-5.20); LYMPHOCYTES PERCENT AUTO 9 % (21-46); MONOCYTES ABSOLUTE AUTO 0.58 K/mm3 (0.16-1.47); MONOCYTES PERCENT AUTO 9 % (4-13); Mean Corpuscular HGB 30.7 pg (26.0-34.0); Mean Corpuscular Volume 96 fL (80-100); Mean Platelet Volume 10.8 fL (9.1-12.4); NEUTROPHILS PERCENT AUTO 79 % (41-73); Platelet Count 207 K/mm3 (150-400); RDW Coefficient Variation 12.7 % (11.7-14.2); RDW Standard Deviation 45.2 fL (35.1-46.3); Red Blood Cell Count 4.07 M/mm3 (4.30-5.90); White Blood Cell Count 6.59 K/mm3 (4.00-11.30)
[2024-05-08 16:45] LABS: Albumin, Blood 2.9 g/dL (3.4-5.0); Bilirubin, Total 0.4 mg/dL (0.1-1.0); Bun/Creatinine Ratio 13.7 (12.0-20.0); Calcium, Blood 8.6 mg/dL (8.5-10.1); Creatinine, Blood 1.02 mg/dL (0.60-1.20); Globulin, Blood 2.9 g/dL (2.2-4.0); Potassium, Blood 3.7 mmol/L (3.5-5.5); Total Protein, Blood 5.8 g/dL (6.4-8.2)
== END ==
LOC: LAB 10:56 → LAB SHORT 10:56
PROVIDERS: Internal Medicine Rheumatology
DX: R63.4 Abnormal weight loss (principal)
CPT/HCPCS: 80053; 85025; 85651

== ENCOUNTER 2024-06-15 04:00 | Emergency (ER) | payer MEDICARE, OTHER ==
[~2024-06-15] VITALS: Ht 185.4 cm; Wt 47.2 kg
[2024-06-15 05:07] LABS: BASOPHILS ABSOLUTE AUTO 0.05 K/mm3 (0.00-0.23); BASOPHILS PERCENT AUTO 1 % (0-2); EOSINOPHILS ABSOLUTE AUTO 0.18 K/mm3 (0.00-0.68); EOSINOPHILS PERCENT AUTO 3 % (0-6); Hematocrit 39.1 % (37.0-53.0); Hemoglobin 12.9 g/dL (13.5-17.5); IMMATURE GRAN ABSOLUTE AUTO 0.01 K/mm3 (0.00-0.10); IMMATURE GRAN PERCENT AUTO 0 % (0-1); LYMPHOCYTES ABSOLUTE AUTO 0.81 K/mm3 (0.84-5.20); LYMPHOCYTES PERCENT AUTO 12 % (21-46); MONOCYTES PERCENT AUTO 11 % (4-13); Mean Corpuscular HGB 31.1 pg (26.0-34.0); Mean Corpuscular Volume 94 fL (80-100); Mean Platelet Volume 9.9 fL (9.1-12.4); NEUTROPHILS ABSOLUTE AUTO 4.89 K/mm3 (1.96-9.15); NEUTROPHILS PERCENT AUTO 74 % (41-73); Platelet Count 184 K/mm3 (150-400); RDW Coefficient Variation 12.8 % (11.7-14.2); RDW Standard Deviation 44.3 fL (35.1-46.3); Red Blood Cell Count 4.15 M/mm3 (4.30-5.90); White Blood Cell Count 6.64 K/mm3 (4.00-11.30)
[2024-06-15 05:23] LABS: Source, Urine Suprapubic Cath
[2024-06-15 05:27] LABS: Albumin, Blood 2.8 g/dL (3.4-5.0); Albumin/Globulin Ratio 0.8 (0.8-1.8); Bilirubin, Total 0.4 mg/dL (0.1-1.0); Bun/Creatinine Ratio 21.4 (12.0-20.0); Calcium, Blood 8.7 mg/dL (8.5-10.1); Creatinine, Blood 0.89 mg/dL (0.60-1.20); Globulin, Blood 3.6 g/dL (2.2-4.0); Potassium, Blood 4.1 mmol/L (3.5-5.5); Total Protein, Blood 6.4 g/dL (6.4-8.2)
[2024-06-15 05:27] LABS: Bilirubin, Urine Neg (Neg); Blood, Urine 4+ (Neg); Glucose Qualitative, Urine Neg (Neg); Ketones, Urine Neg (Neg); Leukocyte Esterase, Urine 3+ (Neg); Nitrite, Urine Pos (Neg); Protein, Urine 3+ (Neg); Specific Gravity, Urine 1.015 (1.003-1.022); Urobilinogen, Urine NORM (Normal)
[2024-06-15 05:29] LABS: Appearance, Urine Hazy (Clear); Color, Urine Yellow (P-Yellow)
[2024-06-15 05:33] LABS: Red Blood Cells, Urine 0-2 /hpf (0-2); White Blood Cells, Urine TNTC /hpf (0-5)
[2024-06-15 05:34] LABS: Bacteria Many /hpf; Squamous Epithelial Cells Not Seen /hpf (Few)
[2024-06-15 06:01] LABS: Influenza A, PCR NEGATIVE (NEGATIVE); Influenza B, PCR NEGATIVE (NEGATIVE); Resp Syncytial Virus, PCR NEGATIVE (NEGATIVE); SARS-Cov-2 (COVID-19) PCR, MMC NEGATIVE (NEGATIVE)
[2024-06-15 06:30] VITALS: BP 164/80
[2024-06-15] MEDS ORDERED: Lidocaine 2% Jelly Uro-Jet UR ONE (06:50)
[2024-06-15] MEDS ORDERED: Ciprofloxacin 500 MG Tab PO ONE (07:30)
[2024-06-15] MEDS ORDERED: CIPR500 PO (07:34)
== END 2024-06-15 08:42 | disposition home or self-care (01) ==
LOC: ER 04:00
PROVIDERS: Student in an Organized Health Care Education/Training Program
DX: N39.0 Urinary tract infection, site not specified (principal); R06.02 Shortness of breath; M05.10 Rheumatoid lung disease with rheumatoid arthritis of unspecified site; C61 Malignant neoplasm of prostate; Z96.0 Presence of urogenital implants; Z87.440 Personal history of urinary (tract) infections; Z87.442 Personal history of urinary calculi; Z79.899 Other long term (current) drug therapy; Z79.52 Long term (current) use of systemic steroids
CPT/HCPCS: 0241U; 71046; 80053; 81001; 85025; 87077; 87086; 87186; 93005; 93010; 99284-25; A9270